=== PATIENT | female | born 2000 | race Hispanic/Latino ===

== ENCOUNTER 2018-11-10 20:31 | Emergency (ER) | payer BC ==
[2018-11-10] MEDS ORDERED: NA CHLORIDE 0.9% 1,000 ML ONE ×2 (21:40→23:23)
[2018-11-10 21:46] LABS: Absolute Lymphocytes (CBC) 1.3 K/uL (0.7-4.9); Basophils % 0.7 % (0-1.3); Eosinophils % 1.5 % (0-4.4); Hematocrit 43.5 % (36.0-45.0); Lymphocytes % 10.4 % (15.3-44.8); MPV 7.9 fL (7.6-11.3); Monocytes % 5.7 % (3.3-12.3); RBC Red Blood Cell Count 4.93 M/uL (3.86-4.86)
[2018-11-10 21:47] LABS: Urine Blood 2+ (NEG); Urine Glucose NEGATIVE (NEG); Urine Protein 1+ (NEG); Urine Specific Gravity >1.030 (1.005-1.030); Urine pH 5.5 (5.0-7.0)
[2018-11-10 21:54] LABS: Urine Bacteria >50 /HPF (<20); Urine RBC <5 /HPF (NONE SEEN)
[2018-11-10 21:55] LABS: Urine Culture Reflex Order REFLEXED
[2018-11-10 22:13] LABS: ALT/SGPT 17 U/L (12-78); AST/SGOT 11 U/L (15-37); Albumin 3.5 g/dL (3.4-5.0); Alkaline Phosphatase 109 U/L (45-117); BUN Blood Urea Nitrogen 10 mg/dL (7-18); Bicarbonate 24 mmol/L (21-32); Bilirubin Direct < 0.1 mg/dL (0-0.2); Bilirubin Total 0.3 mg/dL (0.2-1.0); Glucose Level 117 mg/dL (74-106); Lipase 87 U/L (73-393); Protein, Total 8.7 g/dL (6.4-8.2); Sodium Level 140 mmol/L (136-145)
[2018-11-10] MEDS ORDERED: CEFTRIAXONE/SWI 1gm 1 GM/10 ML SYR ONE (23:23)
--- NOTE | 2018-11-10 23:47 | EDPHYS ---
Physician Documentation [facility] Name: Ngoc Alarcon Age: 17 yrs Sex: Female : 2000 Arrival Date: 11/10/2018 Time: 20:38 Bed 7 Private MD: ED Physician Vern Blum HPI: 11/10 23:47 This 17 yrs old Female presents to ER via Wheelchair with complaints of gs Vomiting. 23:47 The patient presents to the emergency department with nausea, vomiting. Onset: The gs symptoms/episode began/occurred 2 day(s) ago. Possible causes: unknown. The symptoms are aggravated by nothing. The symptoms are alleviated by nothing. Associated signs and symptoms: Pertinent positives: fever. Severity of symptoms: At their worst the symptoms were severe in the emergency department the symptoms are unchanged. The patient has experienced a previous episode. The patient has not recently seen a physician. 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 - Social history:: Smoking status: Patient/guardian denies using tobacco. - Ebola Screening: : No symptoms or risks identified at this time. ROS: 23:47 All other systems are negative. gs Exam: 23:47 Head/Face: Normocephalic, atraumatic. Eyes: Pupils equal round and reactive to light, gs extra-ocular motions intact. Lids and lashes normal. Conjunctiva and sclera are non-icteric and not injected. Cornea within normal limits. Periorbital areas with no swelling, redness, or edema. ENT: Nares patent. No nasal discharge, no septal abnormalities noted. Tympanic membranes are normal and external auditory canals are clear. Oropharynx with no redness, swelling, or masses, exudates, or evidence of obstruction, uvula midline. Mucous membranes moist. Neck: Trachea midline, no thyromegaly or masses palpated, and no cervical lymphadenopathy. Supple, full range of motion without nuchal rigidity, or vertebral point tenderness. No Meningismus. Chest/axilla: Normal chest wall appearance and motion. Nontender with no deformity. No lesions are appreciated. 23:47 Respiratory: Lungs have equal breath sounds bilaterally, clear to auscultation and percussion. No rales, rhonchi or wheezes noted. No increased work of breathing, no retractions or nasal flaring. Skin: Warm, dry with normal turgor. Normal color with no rashes, no lesions, and no evidence of cellulitis. MS/ Extremity: Pulses equal, no cyanosis. Neurovascular intact. Full, normal range of motion. Neuro: Awake and alert, GCS 15, oriented to person, place, time, and situation. Cranial nerves II-XII grossly intact. Motor strength 5/5 in all extremities. Sensory grossly intact. Cerebellar exam normal. Normal gait. 23:47 Constitutional: The patient appears alert, awake, uncomfortable. 23:47 Cardiovascular: Rate: tachycardic, Rhythm: regular, Pulses: no pulse deficits are appreciated, Heart sounds: normal. 23:47 ECG was reviewed by the Attending Physician. 23:47 Abdomen/GI: Palpation: mild abdominal tenderness, in all quadrants. 23:47 Back: CVA tenderness, that is mild, is noted bilaterally. Vital Signs: 20:54 BP 135 / 71; Pulse 151; Resp 20; Temp 99.6(O); Pulse Ox 99% on R/A; Weight 112.49 kg; lp1 Height 5 ft. 1 in. (154.94 cm); Pain 3/10; 21:29 BP 111 / 72; Pulse 144; Resp 18; Pulse Ox 98% on R/A; aa1 22:12 BP 121 / 81; Pulse 114; Resp 16; Pulse Ox 98% on R/A; aa1 23:10 BP 121 / 72; Pulse 112; Resp 16; Temp 98.0; Pulse Ox 98% on R/A; Pain 0/10; aa1 11/11 00:30 BP 122 / 71; Pulse 112; Resp 16; Pulse Ox 99% on R/A; aa1 01:31 BP 127 / 84; Pulse 104; Resp 18; Temp 98.2; Pulse Ox 98% on R/A; Pain 0/10; aa1 11/10 20:54 Body Mass Index 46.86 (112.49 kg, 154.94 cm) lp1 MDM: 11/10 21:18 Patient medically screened. gs 23:47 Differential diagnosis: Nonspecific abd pain, gastritis, gastroenteritis, uti sepsis. Data reviewed: vital signs, nurses notes, lab test result(s), EKG, radiologic studies. Response to treatment: the patient's symptoms have mildly improved after treatment, and as a result, I will admit patient. 23:50 Counseling: I had a detailed discussion with the patient and/or guardian regarding: the gs historical points, exam findings, and any diagnostic results supporting the discharge/admit diagnosis, lab results, the need for further work-up and treatment in the hospital. ED course: still with n/v will admit. 11/10 21:17 Order name: Basic Metabolic Panel [facility] 11/10 21: Order name: CBC with Diff [facility] 11/10 21:17 Order name: Hepatic Function; Complete Time: 22:41 [facility] 11/10 21:17 Order name: Lipase; Complete Time: 22:41 [facility] 11/10 21:17 Order name: Urine Microscopic Only; Complete Time: 22:41 [facility] 11/10 21:17 Order name: TSH; Complete Time: 22:41 [facility] 11/10 21:19 Order name: Basic Metabolic Panel; Complete Time: 22:41 [facility] 11/10 21:19 Order name: CBC with Automated Diff; Complete Time: 22:41 [facility] 11/10 21:33 Order name: Urine Dipstick--Ancillary (enter results); Complete Time: 22:41 [facility] 11/10 21:33 Order name: Urine --Ancillary (enter results); Complete Time: 22:41 [facility] 11/10 21:55 Order name: Urine Culture [facility] 11/10 22:43 Order name: Blood Culture* [facility] 11/10 22:43 Order name: Lactate; Complete Time: 01:53 [facility] 11/10 21:17 Order name: IV Saline Lock; Complete Time: 21:22 [facility] 11/10 21:17 Order name: Labs collected and sent; Complete Time: 21:22 [facility] 11/10 21:17 Order name: Urine Test (obtain specimen); Complete Time: 21:22 [facility] 11/10 21:17 Order name: Urine Dipstick-Ancillary (obtain specimen); Complete Time: 21: [facility] 11/10 21:17 Order name: EKG - Nurse/Tech; Complete Time: 21:21 kdr EC:47 Rate is 157 beats/min. Rhythm is regular. [place] interval is normal. QRS interval is gs normal. QT interval is normal. T waves are Normal. No ST changes noted. Clinical impression: Abnormal EKG without significant change and Sinus tachycardia. Interpreted by me. Administered Medications: 21:29 Drug: NS 0.9% 1000 ml Route: IV; Rate: 1 bolus; Site: left antecubital; aa1 23:45 Follow up: IV Status: Completed infusion; IV Intake: 1000ml aa1 23:45 Drug: NS 0.9% 1000 ml Route: IV; Rate: 1 bolus; Site: left antecubital; aa1 11/11 02:10 Follow up: IV Status: Completed infusion; IV Intake: 1000ml aa1 11/10 23:46 Drug: Rocephin 1 grams Route: IV; Rate: calculated rate; Site: left antecubital; aa1 23:51 Follow up: IV Status: Completed infusion aa1 23:47 Not Given (Duplicate Order): Rocephin - (cefTRIAXone) 1 grams IVPB once over 30 mins; aa1 (mix in 50 mL NS) Disposition: 23:44 Critical Care:. gs Disposition: 11/11/18 01:54 Discharged to Home. Impression: Acute tubulo-interstitial nephritis. - Condition is Stable. - Discharge Instructions: Pyelonephritis, Adult. - Prescriptions for Keflex 500 mg Oral Capsule - take 2 capsule by ORAL route every 12 hours for 7 days; 28 capsule. Zofran 4 mg Oral Tablet - take 1 tablet by ORAL route every 12 hours As needed; 10 tablet. - Medication Reconciliation Form, Thank You Letter, Antibiotic Education, Prescription Opioid Use form. - Follow up: Private Physician; When: 1 - 2 days; Reason: Re-evaluation by your physician. Critical care time excluding procedures: 23:44 Critical care time: Bedside Care: 10 minutes, Consultation: 10 minutes, Family gs Intervention: 10 minutes. Total time: 30 minutes Signatures: Dispatcher [employer] Rachel Bearden RN RN aa1 Vaibhav Hutchinson MD MD kdr Pena, Laura, RN RN lp1 Vern Blum MD MD gs Corrections: (The following items were deleted from the chart) 11/11 01:54 11/10 23:46 Hospitalization Ordered by Awa Henderson MD for Inpatient Admission. Preliminary diagnosis is Sepsis due to Escherichia coli [E. coli]; Urinary tract infection, site not specified. Bed requested for Telemetry/MedSurg (Inpatient). Status is Inpatient Admission. Condition is Stable. Problem is new. Symptoms have improved. UTI on Admission? Yes. 11/11 02:18 01:54 11/11/2018 01:54 Discharged to Home. Impression: Acute tubulo-interstitial aa1 nephritis. Condition is Stable. Forms are Medication Reconciliation Form, Thank You Letter, Antibiotic Education, Prescription Opioid Use. Follow up: Private Physician; When: 1 - 2 days; Reason: Re-evaluation by your physician.
--- NOTE | 2018-11-10 23:47 | ER ---
Nurse's Notes [facility] Name: Ngoc Alarcon Age: 17 yrs Sex: Female : 2000 Arrival Date: 11/10/2018 Time: 20:38 Bed 7 Private MD: Diagnosis: Acute tubulo-interstitial nephritis Presentation: 11/10 20:55 Presenting complaint: Patient states: She has been feeling bad for a few days, lp1 complaint of abdominal pain, vomiting, dizziness; Hx of tachycardia. Transition of care: patient was not received from another setting of care. Onset of symptoms was November 10, 2018. Risk Assessment: Do you want to hurt yourself or someone else? Patient reports no desire to harm self or others. Initial Sepsis Screen: Does the patient meet any 2 criteria? No. Patient's initial sepsis screen is negative. Does the patient have a suspected source of infection? No. Patient's initial sepsis screen is negative. Care prior to arrival: None. 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 - Social history:: Smoking status: Patient/guardian denies using tobacco. - Ebola Screening: : No symptoms or risks identified at this time. Screenin:57 Abuse screen: Denies threats or abuse. Denies injuries from another. Nutritional lp1 screening: No deficits noted. Tuberculosis screening: No symptoms or risk factors identified. 21:00 Fall Risk None identified. aa1 Assessment: 21:00 General: Appears in no apparent distress. comfortable, Behavior is calm, cooperative, aa1 appropriate for age. Pain: Complains of pain in chest and abdomen Pain currently is 3 out of 10 on a pain scale. Neuro: Level of Consciousness is awake, alert, obeys commands, Oriented to person, place, time, situation, Moves all extremities. Full function Speech is normal. Cardiovascular: Reports chest pain, nausea, Denies diaphoresis, shortness of breath, Heart tones S1 S2 present Capillary refill < 3 seconds Patient's skin is warm and dry. Rhythm is regular. Respiratory: Airway is patent Respiratory effort is even, unlabored, Respiratory pattern is regular, symmetrical. GI: Abdomen is non-distended, Bowel sounds present X 4 quads. Abd is soft X 4 quads Reports nausea, vomiting. : No signs and/or symptoms were reported regarding the genitourinary system. EENT: No signs and/or symptoms were reported regarding the EENT system. Derm: Skin is intact, is healthy with good turgor, Skin is pink, warm \T\ dry. Musculoskeletal: Circulation, motion, and sensation intact. Capillary refill < 3 seconds. 22:12 Reassessment: Patient appears in no apparent distress at this time. Patient and/or aa1 family updated on plan of care and expected duration. Pain level reassessed. Patient is alert, oriented x 3, equal unlabored respirations, skin warm/dry/pink. Awaiting completion of test results. 23:10 Reassessment: Patient appears in no apparent distress at this time. Patient and/or aa1 family updated on plan of care and expected duration. Pain level reassessed. Patient is alert, oriented x 3, equal unlabored respirations, skin warm/dry/pink. Pt to have blood cultures and lactate drawn at this time due to elevated WBCs. 11/11 01:31 Reassessment: Patient appears in no apparent distress at this time. Patient and/or aa1 family updated on plan of care and expected duration. Pain level reassessed. Patient is alert, oriented x 3, equal unlabored respirations, skin warm/dry/pink. Pt awaiting bed assignment. 02:16 Reassessment: Patient appears in no apparent distress at this time. Patient is alert, aa1 oriented x 3, equal unlabored respirations, skin warm/dry/pink. Per Dr. Cui pt does not need to be admitted to hospital and may be dc'd on oral abx. Discussed d/c \T\ f/u instructions with pt; denies questions or concerns at this time Patient denies pain at this time. Patient states feeling better. Vital Signs: 11/10 20:54 BP 135 / 71; Pulse 151; Resp 20; Temp 99.6(O); Pulse Ox 99% on R/A; Weight 112.49 kg; lp1 Height 5 ft. 1 in. (154.94 cm); Pain 3/10; 21:29 BP 111 / 72; Pulse 144; Resp 18; Pulse Ox 98% on R/A; aa1 22:12 BP 121 / 81; Pulse 114; Resp 16; Pulse Ox 98% on R/A; aa1 23:10 BP 121 / 72; Pulse 112; Resp 16; Temp 98.0; Pulse Ox 98% on R/A; Pain 0/10; aa1 11/11 00:30 BP 122 / 71; Pulse 112; Resp 16; Pulse Ox 99% on R/A; aa1 01:31 BP 127 / 84; Pulse 104; Resp 18; Temp 98.2; Pulse Ox 98% on R/A; Pain 0/10; aa1 11/10 20:54 Body Mass Index 46.86 (112.49 kg, 154.94 cm) lp1 ED Course: 11/10 20:38 Patient arrived in ED. es 20:50 Rachel Mccauley, RN is Primary Nurse. aa1 20:55 Arm band placed on. lp1 20:56 Triage completed. lp1 20:57 Patient has correct armband on for positive identification. Placed in gown. Bed in low lp1 position. personnel monitor on. Pulse ox on. NIBP on. 21:05 Vern Blum MD is Attending Physician. gs 21:45 Inserted saline lock: 20 gauge in left antecubital area, using aseptic technique. Blood oe collected. 23:44 Awa Henderson MD is Hospitalizing Provider. 11/11 02:16 No provider procedures requiring assistance completed. IV discontinued, intact, aa1 bleeding controlled, No redness/swelling at site. Pressure dressing applied. Administered Medications: 11/10 21:29 Drug: NS 0.9% 1000 ml Route: IV; Rate: 1 bolus; Site: left antecubital; aa1 23:45 Follow up: IV Status: Completed infusion; IV Intake: 1000ml aa1 23:45 Drug: NS 0.9% 1000 ml Route: IV; Rate: 1 bolus; Site: left antecubital; aa1 11/11 02:10 Follow up: IV Status: Completed infusion; IV Intake: 1000ml aa1 11/10 23:46 Drug: Rocephin 1 grams Route: IV; Rate: calculated rate; Site: left antecubital; aa1 23:51 Follow up: IV Status: Completed infusion aa1 23:47 Not Given (Duplicate Order): Rocephin - (cefTRIAXone) 1 grams IVPB once over 30 mins; aa1 (mix in 50 mL NS) Intake: 23:45 IV: 1000ml; Total: 1000ml. aa1 11/11 02:10 IV: 1000ml; Total: 2000ml. aa1 Outcome: 11/10 23:46 Decision to Hospitalize by Provider. 11/11 01:54 Discharge ordered by MD. 02:16 Discharged to home ambulatory, with significant other. aa1 02:16 Condition: good 02:16 Discharge instructions given to patient, significant other, Instructed on discharge instructions, follow up and referral plans. medication usage, Demonstrated understanding of instructions, follow-up care, medications, Prescriptions given X 2. 02:18 Patient left the ED. aa1 Addendum: 11/13/2018 08:36 Addendum: Culture Results: Positive urine culture. i w Signatures: Rachel Mccauley RN RN aa1 Aggie Hernandez Irene, RN RN Gisselle Benson RN RN lp1 Georges Roth Gregory, MD MD
--- NOTE | 2018-11-11 02:07 | P.CNS ---
Date of Consult: 11/11/18 Reason for Consult: tachycardia, fever, UTI Requesting Physician: Vern Blum Chief Complaint: nausea and vomiting, fever History of Present Illness: Ms Alarcon is a 17 years old woman who start with nausea, vomiting, subjective fever since 3-4 days. She denied abdominal pain but has had diffuse back pain. At arrival to ED, she was tachycardic, 150 bpm, EKG shows sinus tachycardia, temp 99.6F. Lab work remarkable for WBC 12.5 K with normal lactate, UA abnormal consistent with UTI. At my encounter, the patient was in non-distress, BP 135/ 71. Allergies NKDA Allergy (Uncoded 07/13/15 20:43) Unknown No Known Allergies Allergy (Uncoded 01/25/16 01:44) Unknown Home medications list reviewed: Yes - Past Medical/Surgical History -: tachycardia Past Surgical History: Reviewed- Non-Contributory - Social History Smoking Status: Never smoker CD- Drugs: No Place of Residence: Home Review of Systems 10-point ROS is otherwise unremarkable Physical Examination General: Alert, In no apparent distress HEENT: Atraumatic, PERRLA, Mucous membr. moist/pink, EOMI, Sclerae nonicteric Neck: Supple, 2+ carotid pulse no bruit, No LAD, Without JVD or thyroid abnormality Respiratory: Clear to auscultation bilaterally, Normal air movement Cardiovascular: Regular rate/rhythm, Normal S1 S2 Gastrointestinal: Normal bowel sounds, No tenderness Musculoskeletal: No tenderness Integumentary: No rashes Neurological: Normal gait, Normal speech, Normal tone, Normal affect Lymphatics: No axilla or inguinal lymphadenopathy Laboratory Data (last 24 hrs) 11/10/18 21:22: WBC 12.5 H, Hgb 14.5, Hct 43.5, Plt Count 488 H 11/10/18 21:22: Sodium 140, Potassium 4.0, BUN 10, Creatinine 0.88, Glucose 117 H, Total Bilirubin 0.3, AST 11 L, ALT 17, Alkaline Phosphatase 109, Lipase 87 - Problems (1) UTI (urinary tract infection) Current Visit: Yes Status: Acute Qualifiers: Urinary tract infection type: acute cystitis Hematuria presence: without hematuria Qualified Code(s): N30.00 - Acute cystitis without hematuria (2) Sinus tachycardia Current Visit: Yes Status: Acute Conclusions/Impression: The patient has documented UTI, she came with low grade fever and sinus tachycardia. She received 1 dose of IV Rocephin and IV fluids, she already feels better and remain hemodynamically stable. I recommend to try oral antibiotics, discharge the patient home, and follow up with PCP in a few days. Follow up urine culture in order to adjust antibiotic treatment if is necessary. Critical Care: No Time Spent Managing Pts care (In Minutes): 50
--- NOTE | 2018-11-11 07:55 | EKG ---
Test Date: 2018-11-10 Test Time: 20:53:31 Teacher Private: [place] MEASUREMENT RESULTS: Intervals: Rate: 157 OK: 116 QRSD: 68 QT: 258 QTc: 417 [place]: P: 36 OK: 116 QRS: 76 T: 23 INTERPRETIVE STATEMENTS: Sinus tachycardia Otherwise normal ECG No previous ECG available for comparison Electronically Signed On 11-11-18 07:54:22 CDT by Quincy Erazo
== END 2018-11-11 02:18 | disposition home or self-care (01) ==
LOC: ER 20:31
DX: N10 Acute pyelonephritis (principal); N30.00 Acute cystitis without hematuria; R00.0 Tachycardia, unspecified
CPT/HCPCS: 36415; 80048; 80076; 81003; 81015; 81025; 83605; 83690; 84443; 85025; 87040; 87077; 87086; 87088; 87186; 93005; 96361; 96374; 99284; J0696; J7030

== ENCOUNTER 2019-02-10 07:54 | Day surgery (SDC) | payer BC ==
[2019-02-09 14:34] LABS: Absolute Lymphocytes (CBC) 1.5 K/uL (0.7-4.9); Basophils % 0.6 % (0-1.3); Lymphocytes % 11.8 % (15.3-44.8); MPV 7.9 fL (7.6-11.3); RBC Red Blood Cell Count 4.69 M/uL (3.86-4.86)
[2019-02-09 14:55] LABS: BUN Blood Urea Nitrogen 12 mg/dL (7-18); Bicarbonate 24 mmol/L (21-32); Glucose Level 84 mg/dL (74-106); Potassium 4.7 mmol/L (3.5-5.1); Sodium Level 140 mmol/L (136-145)
[2019-02-10] MEDS ORDERED: Ringers Lactate 1,000 ML IV ONE (08:36)
[2019-02-10] MEDS ORDERED: CEFAZOLIN/SWI 1gm 1 GM/10 ML SYR ONE (09:10)
[2019-02-10] MEDS ORDERED: PROPOFOL 200 MG/20 ML VIAL IV ONE (10:30)
[2019-02-10] MEDS ORDERED: FENTANYL CITR 100 MCG/2 ML ONE (10:30)
[2019-02-10] MEDS ORDERED: MIDAZOLAM HCL 2 MG/2 ML INJ ONE (10:30)
[2019-02-10] MEDS ORDERED: LIDOCAINE 2% MPF 5 ML VIAL ONE (10:30)
[2019-02-10] MEDS ORDERED: ROCURONIUM 50 MG/5 ML VIAL IV ONE (10:30)
[2019-02-10] MEDS ORDERED: GLYCOPYRROLATE 0.2 MG/ML SYR ONE (12:23)
--- NOTE | 2019-02-10 12:23 | P.BOP ---
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
[2019-02-10] MEDS ORDERED: NEOSTIGMINE 1 MG/ML -10 ML VIAL ONE (12:24)
[2019-02-10] MEDS ORDERED: ONDANSETRON 4 MG/2 ML VIAL ONE (13:00)
[2019-02-10] MEDS ORDERED: PROMETHAZINE 25 MG/ML VIAL ONE (13:35)
[2019-02-10] MEDS ORDERED: CODEINE 30MG/APAP 300MG TAB ONE (14:06)
[2019-02-10 14:47] VITALS: TEMP 96.3
[2019-02-10 14:54] VITALS: BP 122/54; O2SAT 98
--- NOTE | 2019-02-15 10:25 | DS ---
Date of Discharge: 02/10/2019 Diagnosis: Infected posterior neck mass. Procedure: Wide excision of infected posterior neck mass. Disposition: Home. Activity: As tolerated. No heavy lifting. Followup: Follow up in my office in 1 week. Call for appointment, [phone]. Wet-to-dry dressing cesario ordonez. Medications: See orders. Patient's feels comfortable doing dressing changes after fully explained. SIMONA/LINDSAY Voice ID: [id number] Report ID: [id number]
--- NOTE | 2019-02-15 10:28 | OP ---
Date of Procedure: 02/12/2019 Surgeon: Derrick Haywood MD Tumbling Barrel Painter: YOANA Connor. Preoperative Diagnosis: Infected posterior neck mass. Postoperative Diagnosis: Infected posterior neck mass. Procedures: Wide excision of infected posterior neck mass 4 x 1 x 1.5 cm. Estimated Blood Loss: Less than 10 mL. Specimen: Mass with drainage of an abscess. Anesthesia: General plus local. Specimen: All submitted to culture. Indication: This is the case of a female who comes to us with multiple openings in the back of the n carlos with purulent discharge. All together is about 4 x 1 cm. Draining purulent discharge on and off . She has been in treatment before, reopened once again, tender and she wants that excised. The digna efits, alternatives, and risks of excision of infected subcutaneous masses were fully explained to th e patient, which include but are not limited to infection, bleeding, damage to adjacent structures, a nesthesia complication, nonhealing wound, TN, and even . She also understands this may not reli young the symptoms. She might need more than one surgical intervention. She understands she will requ manuel wound care. She signed a consent. These little masses are all next to each other, so we are goi ng to remove that as 1 unit since underneath the subcutaneous tissue, may be connected. Description Of Procedure: The patient was brought to the operating room, placed in supine position. Anesthesia was done without complication. The patient was placed in lateral decubitus position with proper protection. The posterior neck area was prepped and draped in a sterile fashion. The area o f concern was previously marked by me and the patient in the holding room. An incision was made in t hat area. Incision was probed previously, the openings, and they connect each other underneath. So we made an incision about 4 x 1 cm, removing not only the mass but also the skin with it, all the way down to deep subcutaneous tissue. The muscle seems not to be affected, although it goes all the way down there. The mass was excised. The area was irrigated. Cultures were obtained of the pus. Hem ostasis obtained and the area was packed with wet-to-dry dressing. The patient tolerated the procedu re well. The patient was sent to recovery in stable. SIMONA/LINDSAY Voice ID: [id number] Report ID: [id number]
== END 2019-02-10 14:40 | disposition home or self-care (01) ==
LOC: OR 07:54
PROVIDERS: ATTEND Surgery
PROC: 0JB40ZZ Excision of Right Neck Subcutaneous Tissue and Fascia, Open Approach (ICD-10-PCS; principal; 2019-02-10 10:15)
DX: L72.0 Epidermal cyst (principal); L02.11 Cutaneous abscess of neck; E66.9 Obesity, unspecified; F41.9 Anxiety disorder, unspecified; F32.9 Major depressive disorder, single episode, unspecified
CPT/HCPCS: 87070; 85025; 80048; 36415; 87205; 84703; 88304; 87075; 11424; J2704; J2710; J2550; J2250; J3010; J0690; 88305; J2405

== ENCOUNTER 2020-02-04 10:54 | Day surgery (SDC) | payer BC ==
[2020-02-03 14:15] LABS: Absolute Lymphocytes (CBC) 1.5 K/uL (0.7-4.9); Basophils % 0.8 % (0-1.3); Hematocrit 39.5 % (36.0-45.0); Lymphocytes % 11.1 % (15.3-44.8); MPV 7.8 fL (7.6-11.3); RBC Red Blood Cell Count 4.46 M/uL (3.86-4.86)
[2020-02-03 14:47] LABS: Potassium 4.2 mmol/L (3.5-5.1)
[2020-02-04] MEDS ORDERED: Ringers Lactate 1,000 ML IV ONE (11:28)
[2020-02-04] MEDS ORDERED: LIDOCAINE 2% MPF 5 ML VIAL ONE (13:12)
[2020-02-04] MEDS ORDERED: FENTANYL CITR 100 MCG/2 ML ONE (13:12)
[2020-02-04] MEDS ORDERED: propofoL 200 MG/20 ML VIAL IV ONE ×2 (13:12→13:38)
[2020-02-04] MEDS ORDERED: ROCURONIUM 50 MG/5 ML VIAL IV ONE (13:12)
[2020-02-04] MEDS ORDERED: ONDANSETRON 4 MG/2 ML VIAL ONE ×3 (13:12→15:16)
[2020-02-04] MEDS ORDERED: LIDOCAINE 1% MPF 30 ML VIAL ONE (13:16)
[2020-02-04] MEDS ORDERED: MIDAZOLAM HCL 2 MG/2 ML INJ ONE (13:17)
[2020-02-04] MEDS ORDERED: CEFAZOLIN/SWI 1gm 1 GM/10 ML SYR ONE (13:22)
--- NOTE | 2020-02-04 14:03 | P.BOP ---
Preoperative diagnosis: right axillary infected mass with abscess, right post neck infected mass Postoperative diagnosis: same Primary procedure: 1. Excisional biopsy of subQ mass right axilla 3x3 cm with abscess drainage Secondary procedure: 2. Excisional biopsy of subQ mass right post neck 2x2 cm Container Packer Operator: Bianca Stapleton (MANUAL ARTS THERAPY TEACHER) Estimated blood loss: <10cc Specimen: mass x 2, culture Findings: abscess Anesthesia: General Complications: None Drain(s): Other (wet to dry) Transferred to: Recovery Room Condition: Good
[2020-02-04] MEDS ORDERED: dexAMETHasone 10 MG/ML VIAL ONE (14:04)
[2020-02-04] MEDS ORDERED: KETOROLAC 30 MG/ML INJ ONE (14:04)
[2020-02-04] MEDS: HYDROMORPHONE HCL 1 MG/ML INJ ONE ×2 (14:42→14:47)
[2020-02-04 15:15] VITALS: BP 135/67; TEMP 96.5; O2SAT 100
[2020-02-04] MEDS ORDERED: CODEINE 30MG/APAP 300MG TAB ONE (15:16)
--- NOTE | 2020-02-04 18:52 | OP ---
Date of Procedure: 02/04/2020 Surgeon: Derrick Haywood MD Preoperative Diagnoses: Right axillary infected subcutaneous mass with abscess and right posterior i nfected subcutaneous mass with ulceration. Postoperative Diagnoses: Right axillary infected subcutaneous mass with abscess and right posterior infected subcutaneous mass with ulceration. Procedures: 1.Excisional biopsy of right axillary infected subcutaneous mass, 3 x 3 cm, with abscess drainage. 2.Excisional biopsy of infected subcutaneous mass, right posterior neck. Specimens: Mass plus culture of the abscess. Findings: As above. Anesthesia: General plus local. Packing: Wet-to-dry. Indications: This is a case of a 19-year-old patient, known by us in the past due to history of absc esses, now comes with new areas and the one in the right axilla is growing fast, very tender and red with fluctuance present in the right posterior neck and the lateral side. The patient has also anoth er lump with the same characteristic. Benefits, alternatives, and risks of excisional biopsy of thos e with possible abscess drainage fully explained which include, but not limited to infection, bleedin g, damage to adjacent structures, anesthesia complication, nonhealing wound, MO, and even . She also understands this may not relieve the symptoms. She might need more than one surgical intervent ion. She understood and signed a consent. Description Of Procedure: The area of concern was marked by me and the patient in the holding room. The patient was brought to the operating room and placed supine position. Anesthesia was done witho ut complication. We have to do this in 2 stages due to locations, so we placed the patient first in lateral decubitus position. The right posterior neck area was prepped and draped in sterile fashion. Time-out was called and after that, we proceeded to do a wedge incision of the skin to include the ulceration and the mass. The area was irrigated. Hemostasis obtained. The area was packed with wet -to-dry dressing after injecting local anesthetic and hemostasis obtained. The patient tolerated the procedure well. The area was covered with sterile dressings. When we finished that area, then we p roceeded then to place the patient in supine position. We have to all redraped again and new instrum ents again to avoid cross contamination. We called a time-out again and then we proceeded to prep an d drape the axillary area in the usual sterile fashion. Local anesthesia was applied and then I proc eeded to make a wedge incision to include the skin and the mass present. We noticed a large amount o f purulent discharge coming from the area. The loculations were explored and opened. The area was i rrigated, hemostasis obtained, and the area was packed wet-to-dry dressing after injecting local anes thetic. The patient tolerated the procedure well. The patient was sent to recovery in stable condit ion. Disposition: Home. Activity: As tolerated. No heavy lifting. Plan: Follow up in my office in 1 week. Call for appointment at [phone]. Continue the antibiotics p.o. Continue wet-to-dry dressing. SIMONA/LINDSAY Voice ID: [id number] Report ID: [id number]
== END 2020-02-04 15:38 | disposition home or self-care (01) ==
LOC: OR 10:54
PROVIDERS: ATTEND Surgery
PROC: 0H9BXZZ Drainage of Right Upper Arm Skin, External Approach (ICD-10-PCS; 2020-02-04)
PROC: 0JB40ZZ Excision of Right Neck Subcutaneous Tissue and Fascia, Open Approach (ICD-10-PCS; principal; 2020-02-04 12:30)
DX: L72.0 Epidermal cyst (principal); L02.411 Cutaneous abscess of right axilla; L03.111 Cellulitis of right axilla; L03.221 Cellulitis of neck; Z20.828 Contact with and (suspected) exposure to other viral communicable diseases; I11.9 Hypertensive heart disease without heart failure; Z79.899 Other long term (current) drug therapy
CPT/HCPCS: 87070; 85025; 80048; 36415; 87205; 84703; 88304; 87075; 87077; 87186; 11424; 10060; U0002; J2704 ×2; J2250; J3010; J1100; J1170; J0690; J7120; J2405 ×3; 88305

== ENCOUNTER 2020-09-17 06:28 | Emergency (ER) | payer BC ==
--- OUTSIDE RECORDS SUMMARY | 2020-09-17 06:32 | XMS REPORT | Continuity of Care Document ---
:2000 Author Organization [facility] t Address [address] [place] [address] Dr. Sequeira [address] [place] [id number] Care Team Providers Name Role Phone Unavailable Unavailable Unavailable Problems This patient has no known problems. Allergies, Adverse Reactions, Alerts This patient has no known allergies or adverse reactions. Medications This patient has no known medications. Procedures This patient has no known procedures. Results This patient has no known results.
[2020-09-17] MEDS ORDERED: METOPROLOL TARTRATE 5 MG/5 ML INJ IV ONE ×2 (08:55→09:26)
[2020-09-17] MEDS ORDERED: MORPHINE 2 MG/ML SYR ONE (08:55)
[2020-09-17] MEDS ORDERED: ONDANSETRON 4 MG/2 ML VIAL ONE (08:55)
[2020-09-17 09:00] LABS: Absolute Lymphocytes (CBC) 1.3 K/uL (0.7-4.9); Basophils % 0.7 % (0-1.3); Hematocrit 39.5 % (36.0-45.0); Lymphocytes % 11.2 % (15.3-44.8); MPV 8.1 fL (7.6-11.3); RBC Red Blood Cell Count 4.41 M/uL (3.86-4.86)
[2020-09-17 09:10] LABS: Protime INR 1.07
[2020-09-17 09:21] LABS: ALT/SGPT 21 U/L (12-78); AST/SGOT 13 U/L (15-37); Albumin 3.7 g/dL (3.4-5.0); Alkaline Phosphatase 112 U/L (45-117); BUN Blood Urea Nitrogen 8 mg/dL (7-18); Bicarbonate 27 mmol/L (21-32); Bilirubin Direct 0.1 mg/dL (0-0.2); Bilirubin Total 0.3 mg/dL (0.2-1.0); Glucose Level 99 mg/dL (74-106); NT PRO-BNP 30 pg/mL (<125); Sodium Level 138 mmol/L (136-145); Troponin (Emerg Dept Use Only) < 0.02 ng/mL (0.0-0.045)
--- NOTE | 2020-09-17 10:40 | ER ---
Nurse's Notes [facility] Name: Ngoc Alarcon Age: 19 yrs Sex: Female : 2000 Arrival Date: 09/17/2020 Time: 06:29 Bed 3 Private MD: Diagnosis: Chest pain. Palpitations Presentation: 09/17 07:44 Chief complaint: Patient states: chest pain that radiates to L shoulder/ arm that began ss at 0500 this morning. 150 HR at resting that would increase to 170 on exertion. Pt has a history of tachycardia, and did not take her metoprolol last night. Coronavirus screen: Client denies travel out of the [place] in the last 14 days. Ebola Screen: Patient denies exposure to infectious person. Patient denies travel to an Ebola-affected area in the 21 days before illness onset. Initial Sepsis Screen: Does the patient meet any 2 criteria? No. Patient's initial sepsis screen is negative. Does the patient have a suspected source of infection? No. Patient's initial sepsis screen is negative. Risk Assessment: Do you want to hurt yourself or someone else? Patient reports no desire to harm self or others. Onset of symptoms was September 17, 2020. 07:44 Method Of Arrival: Ambulatory ss 07:44 Acuity: REYNOLD 2 ss Historical: - Allergies: 07:46 No Known Allergies; ss - Home Meds: 07:46 metoprolol tartrate 50 mg oral tab 1 tab once daily [Active]; ss - PMHx: 07:46 Tachycardia; ss - PSHx: 07:46 None; ss - Immunization history:: Adult Immunizations up to date. - Social history:: Smoking status: Patient denies any tobacco usage or history of. Screenin:00 Abuse screen: Denies threats or abuse. Denies injuries from another. Nutritional hb screening: No deficits noted. Tuberculosis screening: No symptoms or risk factors identified. Fall Risk None identified. Assessment: 08:00 General: Appears in no apparent distress. uncomfortable, Behavior is calm, cooperative. hb 08:00 Pain: Pain currently is 9 out of 10 on a pain scale. Neuro: Level of Consciousness is hb awake, alert, obeys commands, Oriented to person, place, time, situation. Cardiovascular: Reports chest pain, Patient's skin is warm and dry. Rhythm is sinus tachycardia. Respiratory: Respiratory effort is even, unlabored, Respiratory pattern is regular. GI: No signs and/or symptoms were reported involving the gastrointestinal system. : No signs and/or symptoms were reported regarding the genitourinary system. EENT: No signs and/or symptoms were reported regarding the EENT system. Derm: Skin is pink, warm \T\ dry. Musculoskeletal: No signs and/or symptoms reported regarding the musculoskeletal system. 09:15 Reassessment: Patient appears in no apparent distress at this time. Patient and/or hb family updated on plan of care and expected duration. Pain level reassessed. Patient is alert, oriented x 3, equal unlabored respirations, skin warm/dry/pink. 10:30 Reassessment: Patient appears in no apparent distress at this time. Patient and/or hb family updated on plan of care and expected duration. Pain level reassessed. Patient is alert, oriented x 3, equal unlabored respirations, skin warm/dry/pink. Patient states feeling better. Patient states symptoms have improved. Vital Signs: 07:44 BP 149 / 89; Pulse 157; Resp 16; Temp 99.2(TE); Pulse Ox 100% on R/A; Weight 113.4 kg; ss Height 5 ft. 1 in. (154.94 cm); Pain 10/10; 08:45 BP 130 / 89; Pulse 146 MON; Resp 28; Pulse Ox 98% on R/A; sv 09:00 BP 101 / 79; Pulse 114 MON; Resp 24; Pulse Ox 97% on R/A; sv 09:21 BP 120 / 89; Pulse 114; Resp 16; Pulse Ox 100% ; sv 09:45 BP 132 / 76; Pulse 105; Resp 16; Pulse Ox 97% ; sv 10:30 BP 108 / 68; Pulse 88; Resp 15; Pulse Ox 99% on R/A; hb 07:44 Body Mass Index 47.24 (113.40 kg, 154.94 cm) ss 08:45 Sinus tachycardia sv 09:00 Sinus tachycardia sv ED Course: 06:29 Patient arrived in ED. ag3 07:45 Triage completed. ss 07:46 Arm band placed on right wrist. ss 07:54 Abhijit Kessler MD is Attending Physician. pkl 08:00 Patient has correct armband on for positive identification. Bed in low position. Call hb light in reach. Side rails up X 1. panel monitor on. Pulse ox on. NIBP on. 08:15 Patient maintains SpO2 saturation greater than 95% on room air. hb 08:22 Magda Quigley, QIANA is Primary Nurse. sv 08:50 X-ray(s) taken. sv 08:54 XRAY Chest (1 view) Sent. sv 08:57 XRAY Chest (1 view) In Process Unspecified. EDMS 10:51 No provider procedures requiring assistance completed. IV discontinued, intact, hb bleeding controlled, No redness/swelling at site. Administered Medications: 08:51 Drug: Zofran (Ondansetron) 4 mg Route: IVP; Site: left antecubital; sv 09:22 Follow up: Response: No adverse reaction hb 08:53 Drug: Lopressor (metoprolol) 5 mg Route: IVP; Site: left antecubital; sv 09:20 Follow up: Response: No adverse reaction hb 08:53 Drug: morphine 2 mg {Note: rass1.} Route: IVP; Site: left antecubital; sv 09:30 Follow up: Response: No adverse reaction hb 09:10 Drug: Lopressor (metoprolol) 2.5 mg Route: IVP; Site: left antecubital; sv 09:32 Drug: Lopressor (metoprolol) 2.5 mg Route: IVP; Site: left antecubital; sv 10:00 Follow up: Response: No adverse reaction hb 10:40 Drug: Lopressor (metoprolol TARTRATE) 50 mg Route: PO; hb 10:45 Follow up: Response: Medication administered at discharge. hb Outcome: 10:40 Discharge ordered by . dania 10:44 Discharged to home ambulatory, with family. hb 10:44 Condition: stable 10:44 Discharge instructions given to patient, family, Instructed on discharge instructions, follow up and referral plans. medication usage, Demonstrated understanding of instructions, follow-up care, medications. 10:59 Patient left the ED. hb 11:17 Patient left the ED. hb Signatures: Dispatcher [employer] EDMS Magda Quigley, Abhijit Guy RN, MD MD pkl Smirch, Shelby, RN RN ss Baxter, Heather, RN RN Mary Shah ag3 Corrections: (The following items were deleted from the chart) 07:47 07:44 Acuity: REYNOLD 3 ss ss 08:15 Discharged to home ambulatory, with family, hb hb 08:15 Condition: stable hb hb 08:15 Discharge instructions given to patient, family, Instructed on discharge hb instructions, follow up and referral plans. medication usage, Demonstrated understanding of instructions, follow-up care, medications, hb
--- NOTE | 2020-09-17 10:40 | EDPHYS ---
Physician Documentation [facility] Name: Ngoc Alarcon Age: 19 yrs Sex: Female : 2000 Arrival Date: 09/17/2020 Time: 06:29 Bed 3 Private MD: ED Physician Abhijit Kessler HPI: 09/17 08:39 This 19 yrs old Female presents to ER via Ambulatory with complaints of Chest pkl Tightness. 08:39 The patient or guardian reports chest pain that is located primarily in the substernal pkl area. The pain radiates to the left arm. Associated signs and symptoms: Pertinent positives: palpitations. The chest pain is described as a pressure. The patient has experienced similar episodes in the past, several times. Patient said she forgot to take her metoprolol last night. Historical: - Allergies: 07:46 No Known Allergies; ss - Home Meds: 07:46 metoprolol tartrate 50 mg oral tab 1 tab once daily [Active]; ss - PMHx: 07:46 Tachycardia; ss - PSHx: 07:46 None; ss - Immunization history:: Adult Immunizations up to date. - Social history:: Smoking status: Patient denies any tobacco usage or history of. ROS: 08:39 Eyes: Negative for injury, pain, redness, and discharge, ENT: Negative for injury, pkl pain, and discharge, Neck: Negative for injury, pain, and swelling. 08:39 Cardiovascular: Positive for chest pain, of the substernal, palpitations. 08:39 Respiratory: Negative for cough, shortness of breath. 08:39 Abdomen/GI: Negative for abdominal pain, nausea, vomiting, and diarrhea. 08:39 Back: Negative for pain with movement. 08:39 : Negative for urinary symptoms. 08:39 MS/extremity: Negative for acute changes. 08:39 Skin: Negative for rash. 08:39 Neuro: Negative for altered mental status. Exam: 08:39 Head/Face: Normocephalic, atraumatic. Eyes: Pupils equal round and reactive to light, pkl extra-ocular motions intact. Lids and lashes normal. Conjunctiva and sclera are non-icteric and not injected. Cornea within normal limits. Periorbital areas with no swelling, redness, or edema. ENT: Nares patent. No nasal discharge, no septal abnormalities noted. Tympanic membranes are normal and external auditory canals are clear. Oropharynx with no redness, swelling, or masses, exudates, or evidence of obstruction, uvula midline. Mucous membranes moist. Neck: Trachea midline, no thyromegaly or masses palpated, and no cervical lymphadenopathy. Supple, full range of motion without nuchal rigidity, or vertebral point tenderness. No Meningismus. Chest/axilla: Normal chest wall appearance and motion. Nontender with no deformity. No lesions are appreciated. 08:39 Cardiovascular: Rate: tachycardic, actual rate is 157 bpm, Rhythm: regular. 08:39 ECG was reviewed by the Attending Physician. 08:39 Respiratory: Exam negative for shortness of breath, the patient does not display signs of respiratory distress, Respirations: normal, Breath sounds: are clear throughout. 08:39 Abdomen/GI: Bowel sounds: normal, Palpation: abdomen is soft and non-tender, in all quadrants. 08:39 Back: Exam negative for acute changes. 08:39 : Exam negative for acute changes. 08:39 Musculoskeletal/extremity: Exam is negative for acute changes. 08:39 Skin: Exam negative for rash. 08:39 Neuro: Orientation: is normal, Mentation: is normal, Cranial nerves: grossly normal, Motor: is normal. Vital Signs: 07:44 BP 149 / 89; Pulse 157; Resp 16; Temp 99.2(TE); Pulse Ox 100% on R/A; Weight 113.4 kg; ss Height 5 ft. 1 in. (154.94 cm); Pain 10/10; 08:45 BP 130 / 89; Pulse 146 MON; Resp 28; Pulse Ox 98% on R/A; sv 09:00 BP 101 / 79; Pulse 114 MON; Resp 24; Pulse Ox 97% on R/A; sv 09:21 BP 120 / 89; Pulse 114; Resp 16; Pulse Ox 100% ; sv 09:45 BP 132 / 76; Pulse 105; Resp 16; Pulse Ox 97% ; sv 10:30 BP 108 / 68; Pulse 88; Resp 15; Pulse Ox 99% on R/A; hb 07:44 Body Mass Index 47.24 (113.40 kg, 154.94 cm) ss 08:45 Sinus tachycardia sv 09:00 Sinus tachycardia sv MDM: 07:54 Patient medically screened. pkl 10:36 Data reviewed: vital signs, nurses notes, lab test result(s), EKG, radiologic studies, pkl CT scan, plain films. ED course: Discussed lab EKG and CXR results with patient. Advised to follow up with PCP or [facility] in 2 to 3 days. Patient understood instructions. 09/17 08:06 Order name: Basic Metabolic Panel; Complete Time: 10:32 pkl 09/17 08:06 Order name: CBC with Diff; Complete Time: 10:32 pkl 09/17 08:06 Order name: LFT's; Complete Time: 10: pkl 09/17 08:06 Order name: Magnesium; Complete Time: 10: pkl 09/17 08:06 Order name: NT PRO-BNP; Complete Time: 10:32 pkl 09/17 08:06 Order name: PT-INR; Complete Time: : pkl 09/17 08:06 Order name: Troponin (emerg Dept Use Only); Complete Time: 10:32 pkl 09/17 08:06 Order name: XRAY Chest (1 view); Complete Time: 12:31 pkl 09/17 08:02 Order name: EKG; Complete Time: 08:03 ss 09/17 08:02 Order name: EKG - Nurse/Tech; Complete Time: 08:02 ss 09/17 08:06 Order name: Cardiac monitoring; Complete Time: 08:54 pkl 09/17 08:06 Order name: IV Saline Lock; Complete Time: 08:54 pkl 09/17 08:06 Order name: Labs collected and sent; Complete Time: 08:54 pkl 09/17 08:06 Order name: O2 Per Protocol; Complete Time: 08:54 pkl 09/17 08:06 Order name: O2 Sat Monitoring; Complete Time: 08:54 pkl Administered Medications: 08:51 Drug: Zofran (Ondansetron) 4 mg Route: IVP; Site: left antecubital; sv 09:22 Follow up: Response: No adverse reaction hb 08:53 Drug: Lopressor (metoprolol) 5 mg Route: IVP; Site: left antecubital; sv 09:20 Follow up: Response: No adverse reaction hb 08:53 Drug: morphine 2 mg {Note: rass1.} Route: IVP; Site: left antecubital; sv 09:30 Follow up: Response: No adverse reaction hb 09:10 Drug: Lopressor (metoprolol) 2.5 mg Route: IVP; Site: left antecubital; sv 09:32 Drug: Lopressor (metoprolol) 2.5 mg Route: IVP; Site: left antecubital; sv 10:00 Follow up: Response: No adverse reaction hb 10:40 Drug: Lopressor (metoprolol TARTRATE) 50 mg Route: PO; hb 10:45 Follow up: Response: Medication administered at discharge. hb Disposition: 09/17/20 10:40 Discharged to Home. Impression: Chest pain. Palpitations. - Condition is Stable. - Medication Reconciliation Form, Thank You Letter, Antibiotic Education, Prescription Opioid Use form. - Follow up: Private Physician; When: 2 - 3 days; Reason: Re-evaluation by your physician. - Problem is new. - Symptoms have improved. Signatures: Dispatcher [employer] Magda Lu RN RN Abhijit Kessler MD MD pkl Ros eMary See RN RN Jerri Decker RN RN Corrections: (The following items were deleted from the chart) 10:59 10:40 09/17/2020 10:40 Discharged to Home. Impression: Chest pain. Palpitations. hb Condition is Stable. Forms are Medication Reconciliation Form, Thank You Letter, Antibiotic Education, Prescription Opioid Use. Follow up: Private Physician; When: 2 - 3 days; Reason: Re-evaluation by your physician. Problem is new. Symptoms have improved. pkl 11:17 10:59 09/17/2020 10:40 Discharged to Home. Impression: Chest pain. Palpitations. hb Condition is Stable. Forms are Medication Reconciliation Form, Thank You Letter, Antibiotic Education, Prescription Opioid Use. Follow up: Private Physician; When: 2 - 3 days; Reason: Re-evaluation by your physician. Problem is new. Symptoms have improved. hb
--- NOTE | 2020-09-17 10:42 | RAD REPORT ---
EXAM DESCRIPTION: Krystal Single View09/17/2020 9:00 am CLINICAL HISTORY: Chest pain COMPARISON: none FINDINGS: The lungs appear clear of acute infiltrate. The heart is normal size IMPRESSION: No acute abnormalities displayed
[2020-09-17] MEDS ORDERED: METOPROLOL TAR 50 MG TAB ONE (10:56)
[2020-09-17 11:14] VITALS: TEMP 99.2
[2020-09-17 11:28] VITALS: BP 108/68; O2SAT 99
--- NOTE | 2020-09-18 10:51 | EKG ---
Test Date: 2020-09-17 Test Time: 07:58:04 Rn Trauma: JEZ MEASUREMENT RESULTS: Intervals: Rate: 147 CT: 124 QRSD: 68 QT: 266 QTc: 416 [place]: P: 55 CT: 124 QRS: 56 T: -3 INTERPRETIVE STATEMENTS: Sinus tachycardia Nonspecific T wave abnormality Abnormal ECG Compared to ECG 11/10/2018 20:53:31 T-wave abnormality now present Electronically Signed On 09-18-20 10:46:59 CDT by Ender Mulligan
== END 2020-09-17 11:17 | disposition home or self-care (01) ==
LOC: ER 06:28
DX: R00.2 Palpitations (principal); R00.0 Tachycardia, unspecified
CPT/HCPCS: 93005; 85025; 80048; 36415; 83735; 85610; 80076; 84484; 83880; 71045; 96375; 96374; 99285; J2270; J2405